=== PATIENT | male | born 1950 | race African-American/Black ===

== ENCOUNTER 2017-11-03 17:28 | Inpatient (IN) | payer OTHER ==
[~2017-11-03] VITALS: Ht 172.7 cm; Wt 83.9 kg
[2017-11-03 18:06] LABS: BASOPHILS % 0.4 % (0.0-2.0); EOSINOPHILS % 0.9 % (0.0-5.0); HEMATOCRIT. 46.1 % (42.0-52.0); HEMOGLOBIN. 15.5 g/dL (14.0-18.0); LYMPHOCYTES % 36.4 % (20.0-50.0); MEAN CORPUSCULAR HEMOGLOBIN 28.6 pg (28.0-32.0); MEAN CORPUSCULAR VOLUME 84.9 fL (80.0-94.0); MEAN PLATELET VOLUME 10.2 fl (7.4-10.4); MONOCYTES % 11.5 % (2.0-8.0); NEUTROPHILS % 50.8 % (40.0-76.0); PLATELET 114 x1000/uL (130-400); RED BLOOD CELL COUNT 5.43 mill/uL (4.7-6.1); RED CELL DISTRIBUTION WIDTH 14.6 % (11.6-14.6)
[2017-11-03 18:15] LABS: D-DIMER 3.44 mg/L FEU (<0.50); INR 1.2; PROTHROMBIN TIME 12.1 sec (9.4-11.6)
[2017-11-03 18:22] LABS: CARBON DIOXIDE 29 mEq/L (21-32); CHLORIDE 103 mEq/L (98-107); ETHANOL BLOOD < 10 mg/dL
[2017-11-03] MEDS ORDERED: CLONIDINE 0.2MG TABLET PO ONE (19:00)
[2017-11-03] MEDS ORDERED: ASPIRIN 325MG EC TABLET PO ONE (19:00)
[2017-11-03] MEDS ORDERED: ENOXAPARIN 80MG/0.8ML SYR SUBCUT ONE (20:00)
[2017-11-03] MEDS ORDERED: IPRATROPIUM/ALBUTEROL 0.5-3(2.5)MG/3ML NEB INH PRN (21:15)
[2017-11-03] MEDS ORDERED: ZOLPIDEM TARTRATE 5MG TABLET PO PRN (21:15)
[2017-11-03] MEDS ORDERED: MAGNESIUM/ALUMINUM HYDROXIDE/SIMETHICONE 30ML UDC PO PRN (21:15)
[2017-11-03] MEDS ORDERED: DIPHENHYDRAMINE 50MG/ML VIAL IV PRN (21:15)
[2017-11-03] MEDS ORDERED: NA PHOS,M-B/NA PHOS,DI-BA ENEMA 118ML PR PRN (21:15)
[2017-11-03] MEDS ORDERED: LORAZEPAM 0.5MG TABLET PO PRN (21:15)
[2017-11-03] MEDS ORDERED: DOCUSATE SODIUM 100MG CAPSULE PO PRN (21:15)
[2017-11-03] MEDS ORDERED: NITROGLYCERIN 0.4MG TABLET SL SL PRN (21:15)
[2017-11-03] MEDS ORDERED: MORPHINE SULFATE 2 MG/ML CPJ (NOT FOR IM USE) IV PRN (21:15)
[2017-11-03] MEDS ORDERED: GUAIFENESIN 200MG/10ML SUGAR FREE UDC PO PRN (21:15)
[2017-11-03] MEDS ORDERED: ONDANSETRON HCL 4MG/2ML VIAL IV PRN (21:15)
[2017-11-04] VITALS (9 sets, daily range): BP systolic 158–190; BP diastolic 118–158
[2017-11-04] MEDS: ENOXAPARIN 40MG/0.4ML SYR SUBCUT SCH ×2 (00:26→21:20)
[2017-11-04] MEDS: CLONIDINE 0.1MG TABLET PO PRN ×3 (00:27→07:55)
[2017-11-04 00:59] LABS: TROPONIN I 0.19 ng/mL (0.00-0.04)
[2017-11-04 01:07] LABS: CREATINE KINASE MB FRACTION 11.6 ng/mL (0.5-3.6)
[2017-11-04] MEDS ORDERED: MULT-1204 PO (01:33)
[2017-11-04] MEDS: AMLODIPINE 10MG TABLET PO SCH ×2 (04:23→08:51)
[2017-11-04 08:15] LABS: CREATINE KINASE MB FRACTION 9.8 ng/mL (0.5-3.6); TROPONIN I 0.19 ng/mL (0.00-0.04)
[2017-11-04] MEDS: METOPROLOL TARTRATE 25MG TABLET PO SCH ×2 (08:50→21:18)
[2017-11-04] MEDS: ASPIRIN 325MG EC TABLET PO SCH (08:50)
[2017-11-04] MEDS: FAMOTIDINE 20MG/2ML VIAL IV SCH (08:51)
[2017-11-04] MEDS: LISINOPRIL 20MG TABLET PO SCH ×2 (08:51→21:19)
[2017-11-04 17:30] LABS: T4 FREE 1.45 ng/dL (0.76-1.46)
[2017-11-05] VITALS: BP 175/132
[2017-11-05 04:00] VITALS: BP 158/117
[2017-11-05 06:00] LABS: BASOPHILS % 0.4 % (0.0-2.0); EOSINOPHILS % 1.8 % (0.0-5.0); HEMATOCRIT. 40.5 % (42.0-52.0); HEMOGLOBIN. 13.5 g/dL (14.0-18.0); LYMPHOCYTES % 28.8 % (20.0-50.0); MEAN CORPUSCULAR HEMOGLOBIN 28.2 pg (28.0-32.0); MEAN CORPUSCULAR VOLUME 84.8 fL (80.0-94.0); MEAN PLATELET VOLUME 10.4 fl (7.4-10.4); MONOCYTES % 10.3 % (2.0-8.0); NEUTROPHILS % 58.7 % (40.0-76.0); PLATELET 109 x1000/uL (130-400); RED BLOOD CELL COUNT 4.78 mill/uL (4.7-6.1); RED CELL DISTRIBUTION WIDTH 14.6 % (11.6-14.6)
[2017-11-05 06:31] LABS: CARBON DIOXIDE 29 mEq/L (21-32); CHLORIDE 103 mEq/L (98-107)
[2017-11-05 06:39] LABS: CREATINE KINASE 824 IU/L (39-308); CREATINE KINASE MB FRACTION 8.3 ng/mL (0.5-3.6)
[2017-11-05 08:00] VITALS: BP 172/132
[2017-11-05] MEDS: METOPROLOL TARTRATE 25MG TABLET PO SCH (08:17)
[2017-11-05] MEDS: ASPIRIN 325MG EC TABLET PO SCH (08:17)
[2017-11-05] MEDS: FAMOTIDINE 20MG/2ML VIAL IV SCH ×2 (08:18→20:37)
[2017-11-05] MEDS: AMLODIPINE 10MG TABLET PO SCH (08:18)
[2017-11-05] MEDS: CLOPIDOGREL 75MG TABLET PO SCH (08:18)
[2017-11-05] MEDS: LISINOPRIL 20MG TABLET PO SCH ×2 (08:18→20:36)
[2017-11-05] MEDS ORDERED: METOPROLOL TARTRATE 25MG TABLET PO NR (10:15)
[2017-11-05] MEDS ORDERED: POTASSIUM CHLORIDE 20MEQ TABLET SR PO NR (10:45)
[2017-11-05] MEDS ORDERED: SODIUM CHLORIDE 0.45% 1,000 ML IV SCH (10:45)
[2017-11-05] MEDS ORDERED: SODIUM CHLORIDE 0.45% 500 ML IV ONE (11:00)
[2017-11-05 12:00] VITALS: BP 133/100
[2017-11-05] MEDS: PROPRANOLOL HCL 20MG TABLET PO SCH ×2 (12:08→20:36)
[2017-11-05 16:00] VITALS: BP 144/108
[2017-11-05 20:00] VITALS: BP 176/83
[2017-11-05] MEDS: ENOXAPARIN 40MG/0.4ML SYR SUBCUT SCH (20:37)
[2017-11-05] MEDS ORDERED: METOPROLOL TARTRATE 100MG TABLET PO SCH (21:00)
[2017-11-06] VITALS: BP 158/72
[2017-11-06] MEDS: TRAMADOL 50MG TABLET PO PRN ×2 (03:17→21:55)
[2017-11-06 04:00] VITALS: BP 155/115
[2017-11-06 06:45] LABS: BASOPHILS % 0.5 % (0.0-2.0); EOSINOPHILS % 1.7 % (0.0-5.0); HEMATOCRIT. 40.5 % (42.0-52.0); HEMOGLOBIN. 13.3 g/dL (14.0-18.0); LYMPHOCYTES % 27.5 % (20.0-50.0); MEAN CORPUSCULAR HEMOGLOBIN 27.4 pg (28.0-32.0); MEAN CORPUSCULAR VOLUME 83.5 fL (80.0-94.0); MEAN PLATELET VOLUME 10.3 fl (7.4-10.4); MONOCYTES % 11.9 % (2.0-8.0); NEUTROPHILS % 58.4 % (40.0-76.0); PLATELET 130 x1000/uL (130-400); RED BLOOD CELL COUNT 4.85 mill/uL (4.7-6.1); RED CELL DISTRIBUTION WIDTH 14.3 % (11.6-14.6)
[2017-11-06] MEDS: PROPRANOLOL HCL 20MG TABLET PO SCH ×2 (06:55→12:35)
[2017-11-06 08:00] VITALS: BP 159/129
[2017-11-06] MEDS: CLOPIDOGREL 75MG TABLET PO SCH (08:38)
[2017-11-06] MEDS: ASPIRIN 325MG EC TABLET PO SCH (08:39)
[2017-11-06] MEDS: AMLODIPINE 10MG TABLET PO SCH (08:39)
[2017-11-06] MEDS: FAMOTIDINE 20MG/2ML VIAL IV SCH ×2 (08:39→21:56)
[2017-11-06] MEDS: LISINOPRIL 20MG TABLET PO SCH ×2 (08:42→21:56)
[2017-11-06 09:33] LABS: CHLORIDE 102 mEq/L (98-107)
[2017-11-06 10:49] LABS: CREATINE KINASE 508 IU/L (39-308); TROPONIN I 0.06 ng/mL (0.00-0.04)
[2017-11-06 12:00] VITALS: BP 143/112
[2017-11-06 12:19] LABS: CARBON DIOXIDE 22 mEq/L (21-32); CREATINE KINASE MB FRACTION 6.1 ng/mL (0.5-3.6)
[2017-11-06 16:00] VITALS: BP 149/121
[2017-11-06] MEDS: CLONIDINE 0.1MG TABLET PO PRN (17:48)
[2017-11-06 20:00] VITALS: BP 148/114
[2017-11-06] MEDS: ENOXAPARIN 40MG/0.4ML SYR SUBCUT SCH (21:56)
[2017-11-07] VITALS: BP 140/102
[2017-11-07 04:00] VITALS: BP 194/155
[2017-11-07] MEDS: CLONIDINE 0.1MG TABLET PO PRN (04:23)
[2017-11-07 08:00] VITALS: BP 143/115
[2017-11-07] MEDS: CLOPIDOGREL 75MG TABLET PO SCH (08:34)
[2017-11-07] MEDS: ASPIRIN 325MG EC TABLET PO SCH (08:34)
[2017-11-07] MEDS: AMLODIPINE 10MG TABLET PO SCH (08:34)
[2017-11-07] MEDS: FAMOTIDINE 20MG/2ML VIAL IV SCH ×2 (08:34→21:29)
[2017-11-07] MEDS: LISINOPRIL 20MG TABLET PO SCH ×2 (08:34→21:29)
[2017-11-07 12:00] VITALS: BP 165/113
[2017-11-07] MEDS: PROPRANOLOL HCL 20MG TABLET PO SCH (13:16)
[2017-11-07] MEDS: HYDRALAZINE HCL 50MG TABLET PO SCH ×2 (15:08→21:29)
[2017-11-07 16:00] VITALS: BP 145/65
[2017-11-07] MEDS: APIXABAN 5 MG TABLET PO SCH (16:23)
[2017-11-07] MEDS: METOPROLOL TARTRATE 25MG TABLET PO SCH ×2 (19:25→19:31)
[2017-11-07 20:00] VITALS: BP 159/103
[2017-11-07] MEDS: ATORVASTATIN CALCIUM 10MG TABLET PO SCH (21:29)
[2017-11-08] VITALS (7 sets, daily range): BP systolic 150–196; BP diastolic 84–127
[2017-11-08] MEDS: HYDRALAZINE HCL 50MG TABLET PO SCH ×3 (05:13→21:23)
[2017-11-08] MEDS: CLONIDINE 0.1MG TABLET PO PRN ×2 (05:14→18:58)
[2017-11-08] MEDS: METOPROLOL TARTRATE 25MG TABLET PO SCH (08:50)
[2017-11-08] MEDS: ASPIRIN 81MG TABLET PO SCH (08:50)
[2017-11-08] MEDS: APIXABAN 5 MG TABLET PO SCH ×2 (08:50→17:17)
[2017-11-08] MEDS: LISINOPRIL 20MG TABLET PO SCH ×2 (08:51→21:18)
[2017-11-08] MEDS: AMLODIPINE 10MG TABLET PO SCH (08:51)
[2017-11-08] MEDS: FAMOTIDINE 20MG/2ML VIAL IV SCH ×2 (08:51→21:18)
[2017-11-08] MEDS: TRAMADOL 50MG TABLET PO PRN (08:52)
[2017-11-08] MEDS: PREGABALIN 50 MG CAPSULE PO SCH ×2 (11:59→21:18)
[2017-11-08] MEDS: METOPROLOL TARTRATE 50MG TABLET PO SCH (21:17)
[2017-11-08] MEDS: ATORVASTATIN CALCIUM 10MG TABLET PO SCH (21:17)
[2017-11-08] MEDS: ACETAMINOPHEN 325MG TABLET PO PRN (21:32)
[2017-11-09] VITALS: BP 129/66
[2017-11-09] MEDS: ACETAMINOPHEN 325MG TABLET PO PRN (02:32)
[2017-11-09 04:00] VITALS: BP 142/113
[2017-11-09] MEDS: HYDRALAZINE HCL 50MG TABLET PO SCH ×3 (05:41→22:58)
[2017-11-09] MEDS: CLONIDINE 0.1MG TABLET PO PRN (05:41)
[2017-11-09 08:00] VITALS: BP 156/117
[2017-11-09] MEDS: PREGABALIN 50 MG CAPSULE PO SCH ×2 (10:33→20:41)
[2017-11-09] MEDS: FAMOTIDINE 20MG/2ML VIAL IV SCH ×2 (10:33→20:41)
[2017-11-09] MEDS: ASPIRIN 81MG TABLET PO SCH (10:33)
[2017-11-09] MEDS: LISINOPRIL 20MG TABLET PO SCH ×2 (10:34→20:42)
[2017-11-09] MEDS: METOPROLOL TARTRATE 50MG TABLET PO SCH ×2 (10:34→20:41)
[2017-11-09] MEDS: APIXABAN 5 MG TABLET PO SCH ×2 (10:34→18:26)
[2017-11-09] MEDS: AMLODIPINE 10MG TABLET PO SCH (10:39)
[2017-11-09 12:00] VITALS: BP 127/99
[2017-11-09] MEDS: CLONIDINE 0.1MG TABLET PO SCH ×2 (13:22→20:42)
[2017-11-09] MEDS: TRAMADOL 50MG TABLET PO PRN (14:27)
[2017-11-09 16:52] VITALS: BP 94/69
[2017-11-09 20:00] VITALS: BP 145/112
[2017-11-09] MEDS: ATORVASTATIN CALCIUM 10MG TABLET PO SCH (20:42)
[2017-11-10] VITALS: BP 125/89
[2017-11-10] MEDS: HYDRALAZINE HCL 50MG TABLET PO SCH ×2 (06:31→13:41)
[2017-11-10] MEDS: TRAMADOL 50MG TABLET PO PRN (06:53)
[2017-11-10] MEDS: CLONIDINE 0.1MG TABLET PO SCH (09:22)
[2017-11-10] MEDS: APIXABAN 5 MG TABLET PO SCH ×2 (09:22→16:35)
[2017-11-10] MEDS: PREGABALIN 50 MG CAPSULE PO SCH (09:23)
[2017-11-10] MEDS: METOPROLOL TARTRATE 50MG TABLET PO SCH (09:23)
[2017-11-10] MEDS: AMLODIPINE 10MG TABLET PO SCH (09:24)
[2017-11-10] MEDS: ASPIRIN 81MG TABLET PO SCH (09:24)
[2017-11-10] MEDS: FAMOTIDINE 20MG/2ML VIAL IV SCH (09:24)
[2017-11-10] MEDS: LISINOPRIL 20MG TABLET PO SCH (09:24)
[2017-11-10] MEDS: ACETAMINOPHEN 325MG TABLET PO PRN (09:31)
[2017-11-10] MEDS ORDERED: DEXAMETHASONE 4MG/ML 1ML VIAL IV NR (11:30)
[2017-11-10] MEDS ORDERED: TRIAMCINOLONE ACETONIDE 40MG/ML 1ML VIAL IM NR (11:30)
[2017-11-10] MEDS ORDERED: LIDOCAINE HCL 2% JELLY 30ML MM SCH (12:45)
[2017-11-10 16:38] VITALS: BP 147/121
== END 2017-11-10 18:30 | disposition home or self-care (01) | DRG 64 ==
LOC: ER 17:28 → EDBEDREQ 17:58 → 5WST 20:42 → EDBEDREQ 20:50 → ENRESERV 20:51 → SUPCPDRO 21:13
PROVIDERS: ADMIT Internal Medicine; ATTEND Internal Medicine
DX: I63.9 Cerebral infarction, unspecified (principal); N17.0 Acute kidney failure with tubular necrosis; G81.94 Hemiplegia, unspecified affecting left nondominant side; I48.3 Typical atrial flutter; I16.1 Hypertensive emergency; M62.82 Rhabdomyolysis; I27.20 Pulmonary hypertension, unspecified; I07.1 Rheumatic tricuspid insufficiency; I13.10 Hypertensive heart and chronic kidney disease without heart failure, with stage 1 through stage 4 chronic kidney disease, or unspecified chronic kidney disease; M77.41 Metatarsalgia, right foot; N18.9 Chronic kidney disease, unspecified; R79.1 Abnormal coagulation profile; R74.0 Nonspecific elevation of levels of transaminase and lactic acid dehydrogenase [LDH]; R74.8 Abnormal levels of other serum enzymes; R29.810 Facial weakness; R47.81 Slurred speech; R47.1 Dysarthria and anarthria; R00.0 Tachycardia, unspecified; I73.9 Peripheral vascular disease, unspecified
CPT/HCPCS: 36415; 70450; 70544; 70551; 71010; 73630; 73721; 78582; 80053; 80061; 82550; 82553; 82607; 82746; 82962; 83036; 83735; 83880; 84439; 84443; 84481; 84484; 85025; 85379; 85610; 92523; 92610; 93005; 93306; 93880; 93923; 96372; 97110; 97116; 97162; 97166; 97530; 99285; A9558; G0482; J1650; J3301; J3490

== ENCOUNTER 2017-11-29 09:27 | Emergency (ER) | payer OTHER ==
[~2017-11-29] VITALS: Ht 172.7 cm; Wt 73.0 kg
[~2017-11-29 09:27] MED LIST: MULT-1204 PO
[2017-11-29 09:38] VITALS: BP 140/104
== END 2017-11-29 16:46 | disposition left against medical advice (07) ==
LOC: ER 10:08
DX: M79.671 Pain in right foot (principal); Z53.21 Procedure and treatment not carried out due to patient leaving prior to being seen by health care provider

== ENCOUNTER → 2018-01-25 | Day surgery (SDC) | payer OTHER ==
[2018-01-25 08:13] LABS: BASOPHILS % 0.5 % (0.0-2.0); EOSINOPHILS % 0.5 % (0.0-5.0); HEMATOCRIT. 42.1 % (42.0-52.0); HEMOGLOBIN. 13.9 g/dL (14.0-18.0); LYMPHOCYTES % 20.8 % (20.0-50.0); MEAN PLATELET VOLUME 9.5 fl (7.4-10.4); MONOCYTES % 7.6 % (2.0-8.0); NEUTROPHILS % 70.6 % (40.0-76.0); PLATELET 112 x1000/uL (130-400); RED BLOOD CELL COUNT 5.13 mill/uL (4.7-6.1); RED CELL DISTRIBUTION WIDTH 16.4 % (11.6-14.6)
[2018-01-25 08:22] LABS: INR 1.2; PARTIAL THROMBOPLASTIN TIME 28.5 sec (23.4-31.0); PROTHROMBIN TIME 12.3 sec (9.4-11.6)
[2018-01-25 08:34] LABS: CHLORIDE 104 mEq/L (98-107)
== END | disposition home or self-care (01) ==
LOC: CARD 06:16
PROVIDERS: ATTEND Internal Medicine Clinical Cardiac Electrophysiology
DX: I48.3 Typical atrial flutter (principal); Z53.9 Procedure and treatment not carried out, unspecified reason; I10 Essential (primary) hypertension; Z86.73 Personal history of transient ischemic attack (TIA), and cerebral infarction without residual deficits
CPT/HCPCS: 36415; 80048; 85025; 85610; 85730; 93005